=== PATIENT | male | born 1985 | race Caucasian/White ===

== ENCOUNTER 2017-12-04 05:15 | Emergency (ER) | payer OTHER ==
[~2017-12-04] VITALS: Ht 177.8 cm; Wt 83.9 kg
--- NOTE | 2017-12-04 05:31 | PHYS DOC ---
Adult General HPI HPI Patient is a 32 year old male brought in by ambulance with chief complaint of dizziness generalized weakness. 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 He currently is feeling a little bit better no numbness or tingling of his arms or legs no focal weakness just generalized weakness. No speech difficulty although he does feel that his thoughts are somewhat slow. No diplopia Review of Systems Review of Systems Constitutional: Denies fever or chills [] HENT: Denies nasal congestion or sore throat [] Respiratory: Denies cough or shortness of breath [] Cardiovascular: No additional information not addressed in HPI [] GI: Denies abdominal pain,, vomiting, bloody stools or diarrhea [] : Denies dysuria or hematuria [] All other systems were reviewed and found to be within normal limits, except as documented in this note. Current Medications Current Medications Current Medications Medications (Trade) Dose Ordered Sig/Claudia Start Time Stop Time Status Last Admin Dose Admin Benztropine Mesylate (Cogentin) 2 mg 1X ONCE 12/04/17 06:30 12/04/17 06:31 DC 12/04/17 06:12 2 MG Diphenhydramine HCl (Benadryl) 25 mg 1X ONCE 12/04/17 06:00 12/04/17 06:01 DC 12/04/17 05:50 25 MG Ketorolac Tromethamine (Toradol 15mg Vial) 15 mg 1X ONCE 12/04/17 06:00 12/04/17 06:01 DC 12/04/17 05:50 15 MG Prochlorperazine Edisylate (Compazine) 10 mg 1X ONCE 12/04/17 06:00 12/04/17 06:01 DC 12/04/17 05:50 10 MG Allergies Allergies Allergies Coded Allergies Type Severity Reaction Last Updated Verified No Known Drug Allergies 12/04/17 No Physical Exam Physical Exam Constitutional: Well developed, well nourished, no acute distress, non-toxic appearance. [] HENT: Normocephalic, atraumatic, bilateral external ears normal, oropharynx moist, no oral exudates, nose normal. [] Eyes: PERRLA, EOMI, conjunctiva normal, no discharge. [] Neck: Normal range of motion, no tenderness, supple, no stridor. [] Cardiovascular:Heart rate regular rhythm, no murmur [] Lungs & Thorax: Bilateral breath sounds clear to auscultation [] Abdomen: Bowel sounds normal, soft, no tenderness, no masses, no pulsatile masses. [] Skin: Warm, dry, no erythema, no rash. [] Back: No tenderness, no CVA tenderness. [] Extremities: No tenderness, no cyanosis, no clubbing, ROM intact, no edema. [] Neurologic: Alert and oriented X 3, normal motor function, normal sensory function, no focal deficits noted. [] CRANIAL NERVE INTACT SPEECH NORAML. Psychologic: Affect normal, judgement normal, mood normal. [] Current Patient Data Vital Signs Vital Signs Date Time Temp Pulse Resp B/P (MAP) Pulse Ox O2 Delivery O2 Flow Rate FiO2 12/04/17 07:51 64 16 98 12/04/17 05:33 97.6 149/70 (96) Room Air 97.6 Lab Values Laboratory Tests Test 12/04/17 05:28 White Blood Count 7.8 x10^3/uL (4.0-11.0) Red Blood Count 4.72 x10^6/uL (4.30-5.70) Hemoglobin 13.5 g/dL (13.0-17.5) Hematocrit 39.6 % (39.0-53.0) Mean Corpuscular Volume 84 fL (79-100) Mean Corpuscular Hemoglobin 29 pg (25-35) Mean Corpuscular Hemoglobin Concent 34 g/dL (31-37) Red Cell Distribution Width 12.8 % (11.5-14.5) Platelet Count 193 x10^3/uL (140-400) Neutrophils (%) (Auto) 39 % (31-73) Lymphocytes (%) (Auto) 49 % (24-48) H Monocytes (%) (Auto) 8 % (0-9) Eosinophils (%) (Auto) 4 % (0-3) H Basophils (%) (Auto) 0 % (0-3) Neutrophils # (Auto) 3.0 x10^3uL (1.8-7.7) Lymphocytes # (Auto) 3.8 x10^3/uL (1.0-4.8) Monocytes # (Auto) 0.6 x10^3/uL (0.0-1.1) Eosinophils # (Auto) 0.3 x10^3/uL (0.0-0.7) Basophils # (Auto) 0.0 x10^3/uL (0.0-0.2) Sodium Level 140 mmol/L (136-145) Potassium Level 3.4 mmol/L (3.5-5.1) L Chloride Level 102 mmol/L (98-107) Carbon Dioxide Level 28 mmol/L (21-32) Anion Gap 10 (6-14) Blood Urea Nitrogen 24 mg/dL (8-26) Creatinine 1.2 mg/dL (0.7-1.3) Estimated GFR (Cockcroft-Gault) 71.1 BUN/Creatinine Ratio 20 (6-20) Glucose Level 105 mg/dL (70-99) H Calcium Level 8.6 mg/dL (8.5-10.1) Total Bilirubin 0.4 mg/dL (0.2-1.0) Aspartate Amino Transferase (AST) 15 U/L (15-37) Alanine Aminotransferase (ALT) 36 U/L (16-63) Alkaline Phosphatase 48 U/L (46-116) Troponin I Quantitative < 0.017 ng/mL (0.000-0.055) Total Protein 7.1 g/dL (6.4-8.2) Albumin 4.2 g/dL (3.4-5.0) Albumin/Globulin Ratio 1.4 (1.0-1.7) Laboratory Tests 12/04/17 05:28 Laboratory Tests 12/04/17 05:28 EKG EKG [] Interpretation Time: EKG shows a normal sinus rhythm rate of 66 probably benign early repo type pattern but no STEMI was seen. Interpreted by me the time of encounter. Radiology/Procedures Radiology/Procedures [][facility] [address] [place] [address] IMAGING REPORT Signed PATIENT: MAGALIS RUDD ACCOUNT: [id number] : 1985 LOCATION: ER AGE: 32 SEX: M EXAM STATUS: REG ER ORD. PHYSICIAN: DAVON MOHAMUD DO REASON: headache PROCEDURE: CT HEAD WO CONTRAST CT of the head without contrast, 12/04/2017: HISTORY: Headache The ventricles are within normal limits in size. There is no shift of the midline structures. There is no evidence of acute intracranial hemorrhage or mass effect. IMPRESSION: No acute intracranial abnormality is detected. Electronically signed by: Tobias Byrd MD (12/04/2017 8:19 AM) [facility] DICTATED and SIGNED BY: TOBIAS BYRD MD DATE: 12/04/17 0816 Impressions: HEADACHE Course & Med Decision Making Course & Med Decision Making Pertinent Labs and Imaging studies reviewed. 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 He had a more followed by generalized weakness and then development of a unilateral headache with some nausea he currently feels better although he does have a headache still. He is neurologically intact we plan to check EKG and some basic lab work and treat with migraine cocktail Compazine and Toradol and Benadryl and go from there. Patient felt much better. Denied any headache, no nausea or vomiting. Patient denied any dizziness or blurry vision. His is here to take him home. Dragon Disclaimer Dragon Disclaimer This electronic medical record was generated, in whole or in part, using a voice recognition dictation system. Departure Departure Impression: Primary Impression: Migraine Disposition: HOME, SELF-CARE Condition: STABLE Patient Instructions: Migraine Headache, [id number] ESTRELLITA GUZMAN MD Dec 04, 2017 05:30 DAVON MOHAMUD DO Dec 04, 2017 08:38
[2017-12-04 05:47] LABS: CALCIUM 8.6 mg/dL (8.5-10.1); CREATININE 1.2 mg/dL (0.7-1.3); GFR 71.1; POTASSIUM 3.4 mmol/L (3.5-5.1)
[2017-12-04 05:52] LABS: ALBUMIN 4.2 g/dL (3.4-5.0); ALBUMIN/GLOBULIN RATIO 1.4 (1.0-1.7); TOTAL BILIRUBIN 0.4 mg/dL (0.2-1.0); TOTAL PROTEIN 7.1 g/dL (6.4-8.2)
[2017-12-04] MEDS ORDERED: KETOROLAC 15 MG/ML VIAL. IV ONE (06:00)
[2017-12-04] MEDS ORDERED: diphenhydrAMINE 50 MG/ML VIAL IVP ONE (06:00)
[2017-12-04] MEDS ORDERED: PROCHLORPERAZINE 10 MG/2 ML VIAL. IV ONE (06:00)
[2017-12-04 06:14] LABS: BASO % 0 % (0-3); EOS # 0.3 x10^3/uL (0.0-0.7); EOS % 4 % (0-3); HEMATOCRIT 39.6 % (39.0-53.0); HEMOGLOBIN 13.5 g/dL (13.0-17.5); LYMPH # 3.8 x10^3/uL (1.0-4.8); LYMPH % 49 % (24-48); MEAN CORPUSCULAR HEMOGLOBIN 29 pg (25-35); MEAN CORPUSCULAR HGB CONC 34 g/dL (31-37); MEAN CORPUSCULAR VOLUME 84 fL (79-100); MONO # 0.6 x10^3/uL (0.0-1.1); MONO % 8 % (0-9); NEUT % 39 % (31-73); PLATELET COUNT 193 x10^3/uL (140-400); RED BLOOD COUNT 4.72 x10^6/uL (4.30-5.70); RED CELL DISTRIBUTION WIDTH 12.8 % (11.5-14.5); WHITE BLOOD COUNT 7.8 x10^3/uL (4.0-11.0)
--- NOTE | 2017-12-04 06:19 | EKG ---
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
[2017-12-04] MEDS ORDERED: BENZTROPINE MESYLATE 2 MG/2 ML VIAL. IM ONE (06:30)
[2017-12-04 07:51] VITALS: BP 113/60
--- NOTE | 2017-12-04 08:22 | RAD ---
CT of the head without contrast, 12/04/2017: HISTORY: Headache The ventricles are within normal limits in size. There is no shift of the midline structures. There is no evidence of acute intracranial hemorrhage or mass effect. IMPRESSION: No acute intracranial abnormality is detected. Electronically signed by: Tobias Byrd MD (12/04/2017 8:19 AM) [facility]
== END 2017-12-04 08:49 | disposition home or self-care (01) ==
LOC: ER 05:15
DX: G43.909 Migraine, unspecified, not intractable, without status migrainosus (principal); R42 Dizziness and giddiness; R53.1 Weakness
CPT/HCPCS: 36415; 70450; 80053; 84484; 85025; 93005; 96372; 96374; 96375; 99285; J0515; J0780; J1200; J1885